=== PATIENT | female | born 1940 | race Caucasian/White ===

== ENCOUNTER 2018-09-08 15:31 | Observation (INO) ==
[2018-09-08] MEDS ORDERED: NS 1000 ML 1,000 ML IV SCH (18:44)
[2018-09-08] MEDS ORDERED: DUONEB 0.5 MG/3 MG ONE (19:02)
[2018-09-08] MEDS: DUONEB 0.5 MG/3 MG NEB SCH ×2 (19:10→21:24)
[2018-09-08 19:30] LABS: BASOPHILS # (AUTO) 0.1 X10^3/uL (0.0-0.1); BASOPHILS % (AUTO) 0.5 % (0.2-1.0); EOSINOPHILS # (AUTO) 0.1 x10^3/uL (0.0-0.2); EOSINOPHILS % (AUTO) 0.8 % (0.9-2.9); HEMATOCRIT 33.2 % (36.0-47.0); HEMOGLOBIN 10.8 g/dL (12.0-16.0); LYMPHOCYTES # (AUTO) 3.1 X10^3/uL (1.3-2.9); LYMPHOCYTES % (AUTO) 24.8 % (21.0-51.0); MEAN CORPUSCULAR HEMOGLOBIN 29.1 pg (27.0-34.0); MEAN CORPUSCULAR HGB CONC 32.6 g/dL (33.0-35.0); MEAN CORPUSCULAR VOLUME 89.3 fL (80.0-100.0); MEAN PLATELET VOLUME 8.4 fL (7.4-11.0); MONOCYTES # (AUTO) 0.6 x10^3/uL (0.3-0.8); MONOCYTES % (AUTO) 5.1 % (0.0-13.0); NEUTROPHILS # (AUTO) 8.6 x10^3/uL (2.2-4.8); NEUTROPHILS % (AUTO) 68.8 % (42.0-75.0); PLATELET COUNT 273 X10^3/uL (150.0-450.0); RED BLOOD COUNT 3.71 X10^6/uL (3.5-5.4); RED CELL DISTRIBUTION WIDTH 14.9 % (11.6-16.5); WHITE BLOOD COUNT 12.5 X10^3/uL (3.6-10.0)
[2018-09-08] MEDS: ROCEPHIN VIAL 1 GRAM IVP SCH (19:37)
[2018-09-08] MEDS: NS 1000 ML 1,000 ML IV SCH (19:40)
[2018-09-08 19:51] LABS: CALCIUM 9.3 mg/dL (8.5-10.1); CARBON DIOXIDE 25.8 mmol/L (21-32); COR CA(FOR HYPOALB) 10.1 mg/dL (8.5-10.1); CREATININE 2.6 mg/dL (0.55-1.02); FREE T4 (FREE THYROXINE) 0.88 ng/dL (0.76-1.46); MAGNESIUM 2.1 mg/dL (1.7-2.9); TOTAL PROTEIN 6.8 g/dL (6.4-8.2); TSH (3RD GENERATION) 1.359 uIU/mL (0.358-3.74)
[2018-09-08 19:57] VITALS: BMI 17.5
[2018-09-08 21:00] LABS: APPEARANCE,URINE CLEAR (CLEAR); BILIRUBIN,URINE NEGATIVE (NEGATIVE); BLOOD/HEMOGLOBIN,URINE NEGATIVE (NEGATIVE); COLOR,URINE YELLOW (YELLOW); GLUCOSE, URINE NEGATIVE (NEGATIVE); KETONES,URINE NEGATIVE (NEGATIVE); LEUKOCYTE ESTERASE ,URINE 1+ (NEGATIVE); NITRITES,URINE NEGATIVE (NEGATIVE); PROTEIN,URINE NEGATIVE (NEGATIVE); UROBILINOGEN,URINE NORMAL (NORMAL)
[2018-09-08 21:06] LABS: RBC,URINE 0-2 /HPF (NONE SEEN)
[2018-09-08 21:07] LABS: BACTERIA,URINE TRACE /HPF (NEGATIVE); SQUAMOUS EPITHELIAL CELL,UR RARE /HPF (NEGATIVE)
[2018-09-09] MEDS: DUONEB 0.5 MG/3 MG NEB SCH ×4 (01:20→21:19)
[2018-09-09 05:42] LABS: BASOPHILS % (AUTO) 0.3 % (0.2-1.0); EOSINOPHILS # (AUTO) 0.1 x10^3/uL (0.0-0.2); EOSINOPHILS % (AUTO) 0.6 % (0.9-2.9); HEMATOCRIT 29.8 % (36.0-47.0); HEMOGLOBIN 9.9 g/dL (12.0-16.0); LYMPHOCYTES # (AUTO) 3.3 X10^3/uL (1.3-2.9); LYMPHOCYTES % (AUTO) 27.9 % (21.0-51.0); MEAN CORPUSCULAR HEMOGLOBIN 29.3 pg (27.0-34.0); MEAN CORPUSCULAR HGB CONC 33.3 g/dL (33.0-35.0); MEAN CORPUSCULAR VOLUME 87.8 fL (80.0-100.0); MEAN PLATELET VOLUME 8.3 fL (7.4-11.0); MONOCYTES # (AUTO) 0.8 x10^3/uL (0.3-0.8); MONOCYTES % (AUTO) 6.6 % (0.0-13.0); NEUTROPHILS # (AUTO) 7.6 x10^3/uL (2.2-4.8); NEUTROPHILS % (AUTO) 64.6 % (42.0-75.0); PLATELET COUNT 234 X10^3/uL (150.0-450.0); RED BLOOD COUNT 3.39 X10^6/uL (3.5-5.4); RED CELL DISTRIBUTION WIDTH 15.1 % (11.6-16.5); WHITE BLOOD COUNT 11.7 X10^3/uL (3.6-10.0)
[2018-09-09 05:54] LABS: ALBUMIN 2.6 g/dL (3.4-5.0); CALCIUM 9.2 mg/dL (8.5-10.1); CARBON DIOXIDE 26.5 mmol/L (21-32); COR CA(FOR HYPOALB) 10.3 mg/dL (8.5-10.1); CREATININE 2.34 mg/dL (0.55-1.02); TOTAL PROTEIN 5.9 g/dL (6.4-8.2)
[2018-09-09] MEDS: ROCEPHIN VIAL 1 GRAM IVP SCH (09:35)
--- NOTE | 2018-09-09 13:50 | DR.H&P ---
H&P - History & Physical for Day of: H&P Date: 09/08/18 - Chief Complaint Chief Complaint: AMS, CONFUSION - History of Present Illness History of Present Illness: 78 WF DIRECT ADMIT FOR TREATMENT OF ACUTE INCREASED CONFUSION WITH POSSIBLE UTI. PT HAS HX OF CA WITH GENERALIZED WEAKNESS, HX OF REOCCURRING UTI'S, COPD, CAD WITH STENT PLACEMENT. PT ADMITTED FOR TREATMENT OF ACUTE RENAL INSUFFICIENCY, UTI, AMS. - Past Medical History Past Medical History: Arthritis, COPD, Coronary Artery Disease, Dementia, Hypertension, Kidney Stones, Renal Disease - Past Surgical History Surgical History: Angioplasty/Stents - Family History Family Medical History: Diabetes Mellitus, Cancer - Social History Does patient currently use any type of tobacco product: Yes Have you used tobacco products in the last 12 months: Yes Type of Tobacco Use: Cigarettes Alcohol Use: None Drug Use: None - Medications Home Medications: No Known Drug Allergies Allergy (Verified 09/08/18 18:42) CONTINUE taking the following medications albuterol sulfate [Ventolin HFA] 1 puff INHALATION Q4H PRN 09/09/18 [History] aspirin 81 mg PO QDAY 09/09/18 [History] buspirone 1 tab PO TID 09/09/18 [History] carvedilol 1 tab PO BID 09/09/18 [History] clopidogrel 1 tab PO DAILY 09/09/18 [History] docusate sodium [Colace] 100 mg PO BID 09/09/18 [History] escitalopram oxalate 1 tab PO DAILY 09/09/18 [History] furosemide 1 tab PO DAILY 09/09/18 [History] hydrocodone-acetaminophen 1 tab PO TID PRN 09/09/18 [History] ipratropium-albuterol 1 vial INHALATION QID 09/09/18 [History] megestrol 20 ml PO DAILY 09/09/18 [History] nitroglycerin 1 tab SUBLINGUAL .Q5MIN 09/09/18 [History] omeprazole 1 cap PO BID 09/09/18 [History] potassium chloride 20 meq PO DAILY 09/09/18 [History] simvastatin 1 tab PO HS 09/09/18 [History] - Review of Systems Constitutional: Fever, Weakness Eyes: No Symptoms Reported ENT: No Symptoms Reported Respiratory: No Symptoms Reported Cardiovascular: No Symptoms Reported Gastrointestinal: No Symptoms Reported Genitourinary: Dysuria, Frequency, Incontinence Musculoskeletal: No Symptoms Reported Skin: No Symptoms Reported Neurological: Weakness, Confusion - Physical Exam Vital Signs: Temperature 98.2 F Pulse Rate [Left Brachial] 90 Pulse Rate 84 Respiratory Rate 18 Blood Pressure [Left Arm] 104/67 O2 Sat by Pulse Oximetry 100 Oriented: Person Eyes: Normal Ear: Normal Nose: Normal Throat: Normal Respiratory: RLL Diminished, LLL Diminished Cardiovascular: Normal. negative: Murmur, Edema : Normal Auscultation: Bowel Sounds: Normal Palpation: Normal Tenderness: Normal Skin: Decreased Turgur Musculoskeletal: Right, Left, Motor Deficit (WEAKNESS MUSCLE ATROPHY) Mood Description: Flat, Withdrawn Speech Pattern: Appropriate, Delayed (LIMITED VERBAL RESPONSES, POOR EYE CONTACT) - Assessment/Plan (1) Altered mental status Status: Acute Plan: ADMIT BLOOD AND URINE CULTURE ON ADMISSION. GENTLE HYDRATION, I & OS, BP CONTROL. IV ATBX, CT ABD/PELVIS HX OF RENAL STONES. VERIFY HOME MEDS. FALL PRECAUTIONS, PAIN CONTROL (2) UTI (urinary tract infection) Status: Acute (3) Dehydration Status: Acute (4) CAD (coronary artery disease) Status: Acute - Allergies Allergies/Adverse Reactions: Allergies Allergy/AdvReac Type Severity Reaction Status Date / Time No Known Drug Allergies Allergy Verified 09/08/18 18:42
[2018-09-09] MEDS: NS 1000 ML 1,000 ML IV SCH ×2 (16:03→21:25)
[2018-09-10] MEDS: DUONEB 0.5 MG/3 MG NEB SCH ×3 (01:05→21:33)
[2018-09-10 05:32] LABS: BASOPHILS # (AUTO) 0.1 X10^3/uL (0.0-0.1); BASOPHILS % (AUTO) 0.4 % (0.2-1.0); EOSINOPHILS # (AUTO) 0.1 x10^3/uL (0.0-0.2); EOSINOPHILS % (AUTO) 0.8 % (0.9-2.9); HEMATOCRIT 29.2 % (36.0-47.0); HEMOGLOBIN 9.9 g/dL (12.0-16.0); LYMPHOCYTES # (AUTO) 3.3 X10^3/uL (1.3-2.9); MEAN CORPUSCULAR HEMOGLOBIN 29.7 pg (27.0-34.0); MEAN CORPUSCULAR HGB CONC 33.9 g/dL (33.0-35.0); MEAN CORPUSCULAR VOLUME 87.4 fL (80.0-100.0); MEAN PLATELET VOLUME 8.6 fL (7.4-11.0); MONOCYTES # (AUTO) 0.9 x10^3/uL (0.3-0.8); NEUTROPHILS # (AUTO) 8.2 x10^3/uL (2.2-4.8); NEUTROPHILS % (AUTO) 65.8 % (42.0-75.0); PLATELET COUNT 227 X10^3/uL (150.0-450.0); RED BLOOD COUNT 3.35 X10^6/uL (3.5-5.4); RED CELL DISTRIBUTION WIDTH 14.8 % (11.6-16.5); WHITE BLOOD COUNT 12.5 X10^3/uL (3.6-10.0)
[2018-09-10 06:07] LABS: ALBUMIN 2.5 g/dL (3.4-5.0); CARBON DIOXIDE 25.2 mmol/L (21-32); COR CA(FOR HYPOALB) 10.2 mg/dL (8.5-10.1); CREATININE 1.97 mg/dL (0.55-1.02); TOTAL PROTEIN 5.7 g/dL (6.4-8.2)
[2018-09-10] MEDS: ROCEPHIN VIAL 1 GRAM IVP SCH (09:57)
[2018-09-10] MEDS: NS 1000 ML 1,000 ML IV SCH (11:32)
[2018-09-10] MEDS: NORCO 7.5/325 MG TAB PO PRN ×2 (14:39→21:19)
--- NOTE | 2018-09-10 15:24 | PCM.PROG ---
Progress Note - Progress Note for Day of Date of Exam: 09/09/18 - Subjective Subjective: 78 WF ADMITTED ON 09/08 WITH AMS DUE TO POSSIBLE ACUTE INFECTION, HX OF UTIS WITH RENAL STONES. PT CURRENTLY ON IV ROCEPHIN WITH WBC11.7 BUN 54/CREAST 2.34 SLIGHTLY IMPROVED. CULTURES PENDING. PT CONTINUES WITH LIMITED VERBAL REPONSES TO STAFF. PT FAMILY AT BEDSIDE REPORTS SHE HAS BEEN AWAKE AND TALKING MORE, SEEMS TO BE IMPROVING. PT DENIES PAIN THIS AM, ATE SMALL AMOUNT OF BREAKFAST. NO ACUTE DISTRESS - Past Medical Family Social History Past Med/Fam/Surg Hx: No changes since H&P Allergies: Allergies No Known Drug Allergies Allergy (Verified 09/08/18 18:42) - Review of Systems ROS: No change since H&P - Vital Signs and I&O's Vital Signs: Temperature 98.3 F Pulse Rate [Left Brachial] 107 Pulse Rate 102 Respiratory Rate 18 Blood Pressure [Left Arm] 111/59 O2 Sat by Pulse Oximetry 96 Intake and Output: Intake & Output 09/08/18 09/09/18 09/10/18 09/11/18 11:59 11:59 11:59 11:59 Intake Total 803 / 803 2335 / 2335 1320 / 1320 Balance 803 / 803 2335 / 2335 1320 / 1320 - Physical Exam Oriented: Person Eyes: Normal Ear: Normal Nose: Normal Throat: Normal Respiratory: Diminished Cardiovascular: Normal. negative: Murmur, Edema : Normal Auscultation: Bowel Sounds: Normal Tenderness: Normal Skin: Decreased Turgur Musculoskeletal: Right, Left, Motor Deficit (WEAKNESS MUSCLE ATROPHY) Mood Description: Flat, Withdrawn Speech Pattern: Appropriate, Delayed (LIMITED VERBAL RESPONSES, POOR EYE CONTACT) - Laboratory and Diagnostics Result Diagrams: 09/10/18 04:10 09/10/18 04:10 Labs: 09/08/18 20:35 Blood Blood Culture - Preliminary 09/08/18 19:08 Blood Blood Culture - Preliminary 09/08/18 20:45 Urine,Clean Catch Urine Culture - Final Laboratory WBC 12.5 X10^3/uL (3.6-10.0) H 09/10/18 04:10 RBC 3.35 X10^6/uL (3.5-5.4) L 09/10/18 04:10 Hgb 9.9 g/dL (12.0-16.0) L 09/10/18 04:10 Hct 29.2 % (36.0-47.0) L 09/10/18 04:10 MCV 87.4 fL (80.0-100.0) 09/10/18 04:10 MCH 29.7 pg (27.0-34.0) 09/10/18 04:10 MCHC 33.9 g/dL (33.0-35.0) 09/10/18 04:10 RDW 14.8 % (11.6-16.5) 09/10/18 04:10 Plt Count 227 X10^3/uL (150.0-450.0) 09/10/18 04:10 MPV 8.6 fL (7.4-11.0) 09/10/18 04:10 Neut % (Auto) 65.8 % (42.0-75.0) 09/10/18 04:10 Lymph % (Auto) 26.0 % (21.0-51.0) 09/10/18 04:10 [place] % (Auto) 7.0 % (0.0-13.0) 09/10/18 04:10 Eos % (Auto) 0.8 % (0.9-2.9) L 09/10/18 04:10 Baso % (Auto) 0.4 % (0.2-1.0) 09/10/18 04:10 Neut # (Auto) 8.2 x10^3/uL (2.2-4.8) H 09/10/18 04:10 Lymph # (Auto) 3.3 X10^3/uL (1.3-2.9) H 09/10/18 04:10 [place] # (Auto) 0.9 x10^3/uL (0.3-0.8) H 09/10/18 04:10 Eos # (Auto) 0.1 x10^3/uL (0.0-0.2) 09/10/18 04:10 Baso # (Auto) 0.1 X10^3/uL (0.0-0.1) 09/10/18 04:10 Absolute Nucleated RBC 0.0 /100WBC 09/10/18 04:10 Sodium 140 mmol/L (136-145) 09/10/18 04:10 Corrected Sodium 142 mmol/L (136-145) 09/10/18 04:10 Potassium 4.1 mmol/L (3.5-5.1) 09/10/18 04:10 Chloride 105 mmol/L (98-107) 09/10/18 04:10 Carbon Dioxide 25.2 mmol/L (21-32) 09/10/18 04:10 BUN 47 mg/dL (7-18) H 09/10/18 04:10 Creatinine 1.97 mg/dL (0.55-1.02) H 09/10/18 04:10 Est GFR (MDRD) Af Amer 32 (>60) L 09/10/18 04:10 Est GFR (MDRD) Non-Af 26 (>60) L 09/10/18 04:10 Glucose 167 mg/dL (65-99) H 09/10/18 04:10 Calcium 9.0 mg/dL (8.5-10.1) 09/10/18 04:10 Corrected Calcium 10.2 mg/dL (8.5-10.1) H 09/10/18 04:10 Magnesium 2.1 mg/dL (1.7-2.9) 09/08/18 19:08 Total Bilirubin 0.20 mg/dL (0.2-1.0) 09/10/18 04:10 AST 17 Units/L (15-37) 09/10/18 04:10 ALT 20 Units/L (12-78) 09/10/18 04:10 Alkaline Phosphatase 84 Units/L (46-116) 09/10/18 04:10 Total Protein 5.7 g/dL (6.4-8.2) L 09/10/18 04:10 Albumin 2.5 g/dL (3.4-5.0) L 09/10/18 04:10 Globulin 3.2 g/dL (2.5-4.5) 09/10/18 04:10 Albumin/Globulin Ratio 0.8 Ratio (1.1-2.1) L 09/10/18 04:10 Free T4 0.88 ng/dL (0.76-1.46) 09/08/18 19:08 TSH 3rd Generation 1.359 uIU/mL (0.358-3.74) 09/08/18 19:08 Specimen Type Catherized urine 09/08/18 20:45 Urine Color Yellow (YELLOW) 09/08/18 20:45 Urine Appearance Clear (CLEAR) 09/08/18 20:45 Urine pH 5.0 (5.0 - 8.0) 09/08/18 20:45 Ur Specific [place] 1.010 (1.000-1.030) 09/08/18 20:45 Urine Protein Negative (NEGATIVE) 09/08/18 20:45 Urine Glucose (UA) Negative (NEGATIVE) 09/08/18 20:45 Urine Ketones Negative (NEGATIVE) 09/08/18 20:45 Urine Occult Blood Negative (NEGATIVE) 09/08/18 20:45 Urine Nitrite Negative (NEGATIVE) 09/08/18 20:45 Urine Bilirubin Negative (NEGATIVE) 09/08/18 20:45 Urine Urobilinogen Normal (NORMAL) 09/08/18 20:45 Ur Leukocyte Esterase 1+ (NEGATIVE) 09/08/18 20:45 Urine RBC 0-2 /HPF (NONE SEEN) 09/08/18 20:45 Urine WBC 3-5 /HPF (NONE SEEN) 09/08/18 20:45 Ur Squamous Epith Cells Rare /HPF (NEGATIVE) 09/08/18 20:45 Urine Bacteria Trace /HPF (NEGATIVE) 09/08/18 20:45 Ur Culture Indicated? Yes/culture set up 09/08/18 20:45 - Plan (1) Altered mental status Status: Acute Plan: BLOOD AND URINE CULTURE ON ADMISSION. MORE AWAKE AND ALERT TODAY. CONTINUE GENTLE HYDRATION, I & OS, BP CONTROL. IV ATBX, CT ABD/PELVIS HX OF RENAL STONES. VERIFY HOME MEDS. FALL PRECAUTIONS, PAIN CONTROL (2) UTI (urinary tract infection) Status: Acute Plan: IV ROCEPHIN (3) Dehydration Status: Acute (4) CAD (coronary artery disease) Status: Acute
--- NOTE | 2018-09-10 15:28 | PCM.PROG ---
Progress Note - Progress Note for Day of Date of Exam: 09/10/18 - Subjective Subjective: 78 WF ADMITTED ON 09/08 WITH AMS DUE TO POSSIBLE ACUTE INFECTION, HX OF UTIS WITH RENAL STONES. PT CURRENTLY ON IV ROCEPHIN WITH WBC 12.5 BUN 47/CREAST 7.97 SLIGHTLY IMPROVED. CULTURES PENDING. PT CONTINUES WITH LIMITED VERBAL REPONSES TO STAFF. PT FAMILY AT BEDSIDE REPORTS SHE HAS BEEN AWAKE AND TALKING MORE, SEEMS TO BE IMPROVING. PT CO PAIN THIS AM ASKING FOR PAIN MEDICATION AND ASKING STAFF "WHEN AM I GOING HOME" - Past Medical Family Social History Past Med/Fam/Surg Hx: No changes since H&P Allergies: Allergies No Known Drug Allergies Allergy (Verified 09/08/18 18:42) - Review of Systems ROS: No change since H&P - Vital Signs and I&O's Vital Signs: Temperature 98.3 F Pulse Rate [Left Brachial] 107 Pulse Rate 102 Respiratory Rate 18 Blood Pressure [Left Arm] 111/59 O2 Sat by Pulse Oximetry 96 Intake and Output: Intake & Output 09/08/18 09/09/18 09/10/18 09/11/18 11:59 11:59 11:59 11:59 Intake Total 803 / 803 2335 / 2335 1320 / 1320 Balance 803 / 803 2335 / 2335 1320 / 1320 - Physical Exam Oriented: Person Eyes: Normal Ear: Normal Nose: Normal Throat: Normal Respiratory: Diminished Cardiovascular: Normal. negative: Murmur, Edema : Normal Auscultation: Bowel Sounds: Normal Tenderness: Normal Skin: Decreased Turgur Musculoskeletal: Right, Left, Motor Deficit (WEAKNESS MUSCLE ATROPHY) Mood Description: Flat, Withdrawn Speech Pattern: Appropriate, Delayed (LIMITED VERBAL RESPONSES, POOR EYE CONTACT) - Laboratory and Diagnostics Result Diagrams: 09/10/18 04:10 09/10/18 04:10 Labs: 09/08/18 20:35 Blood Blood Culture - Preliminary 09/08/18 19:08 Blood Blood Culture - Preliminary 09/08/18 20:45 Urine,Clean Catch Urine Culture - Final Laboratory WBC 12.5 X10^3/uL (3.6-10.0) H 09/10/18 04:10 RBC 3.35 X10^6/uL (3.5-5.4) L 09/10/18 04:10 Hgb 9.9 g/dL (12.0-16.0) L 09/10/18 04:10 Hct 29.2 % (36.0-47.0) L 09/10/18 04:10 MCV 87.4 fL (80.0-100.0) 09/10/18 04:10 MCH 29.7 pg (27.0-34.0) 09/10/18 04:10 MCHC 33.9 g/dL (33.0-35.0) 09/10/18 04:10 RDW 14.8 % (11.6-16.5) 09/10/18 04:10 Plt Count 227 X10^3/uL (150.0-450.0) 09/10/18 04:10 MPV 8.6 fL (7.4-11.0) 09/10/18 04:10 Neut % (Auto) 65.8 % (42.0-75.0) 09/10/18 04:10 Lymph % (Auto) 26.0 % (21.0-51.0) 09/10/18 04:10 [place] % (Auto) 7.0 % (0.0-13.0) 09/10/18 04:10 Eos % (Auto) 0.8 % (0.9-2.9) L 09/10/18 04:10 Baso % (Auto) 0.4 % (0.2-1.0) 09/10/18 04:10 Neut # (Auto) 8.2 x10^3/uL (2.2-4.8) H 09/10/18 04:10 Lymph # (Auto) 3.3 X10^3/uL (1.3-2.9) H 09/10/18 04:10 [place] # (Auto) 0.9 x10^3/uL (0.3-0.8) H 09/10/18 04:10 Eos # (Auto) 0.1 x10^3/uL (0.0-0.2) 09/10/18 04:10 Baso # (Auto) 0.1 X10^3/uL (0.0-0.1) 09/10/18 04:10 Absolute Nucleated RBC 0.0 /100WBC 09/10/18 04:10 Sodium 140 mmol/L (136-145) 09/10/18 04:10 Corrected Sodium 142 mmol/L (136-145) 09/10/18 04:10 Potassium 4.1 mmol/L (3.5-5.1) 09/10/18 04:10 Chloride 105 mmol/L (98-107) 09/10/18 04:10 Carbon Dioxide 25.2 mmol/L (21-32) 09/10/18 04:10 BUN 47 mg/dL (7-18) H 09/10/18 04:10 Creatinine 1.97 mg/dL (0.55-1.02) H 09/10/18 04:10 Est GFR (MDRD) Af Amer 32 (>60) L 09/10/18 04:10 Est GFR (MDRD) Non-Af 26 (>60) L 09/10/18 04:10 Glucose 167 mg/dL (65-99) H 09/10/18 04:10 Calcium 9.0 mg/dL (8.5-10.1) 09/10/18 04:10 Corrected Calcium 10.2 mg/dL (8.5-10.1) H 09/10/18 04:10 Magnesium 2.1 mg/dL (1.7-2.9) 09/08/18 19:08 Total Bilirubin 0.20 mg/dL (0.2-1.0) 09/10/18 04:10 AST 17 Units/L (15-37) 09/10/18 04:10 ALT 20 Units/L (12-78) 09/10/18 04:10 Alkaline Phosphatase 84 Units/L (46-116) 09/10/18 04:10 Total Protein 5.7 g/dL (6.4-8.2) L 09/10/18 04:10 Albumin 2.5 g/dL (3.4-5.0) L 09/10/18 04:10 Globulin 3.2 g/dL (2.5-4.5) 09/10/18 04:10 Albumin/Globulin Ratio 0.8 Ratio (1.1-2.1) L 09/10/18 04:10 Free T4 0.88 ng/dL (0.76-1.46) 09/08/18 19:08 TSH 3rd Generation 1.359 uIU/mL (0.358-3.74) 09/08/18 19:08 Specimen Type Catherized urine 09/08/18 20:45 Urine Color Yellow (YELLOW) 09/08/18 20:45 Urine Appearance Clear (CLEAR) 09/08/18 20:45 Urine pH 5.0 (5.0 - 8.0) 09/08/18 20:45 Ur Specific [place] 1.010 (1.000-1.030) 09/08/18 20:45 Urine Protein Negative (NEGATIVE) 09/08/18 20:45 Urine Glucose (UA) Negative (NEGATIVE) 09/08/18 20:45 Urine Ketones Negative (NEGATIVE) 09/08/18 20:45 Urine Occult Blood Negative (NEGATIVE) 09/08/18 20:45 Urine Nitrite Negative (NEGATIVE) 09/08/18 20:45 Urine Bilirubin Negative (NEGATIVE) 09/08/18 20:45 Urine Urobilinogen Normal (NORMAL) 09/08/18 20:45 Ur Leukocyte Esterase 1+ (NEGATIVE) 09/08/18 20:45 Urine RBC 0-2 /HPF (NONE SEEN) 09/08/18 20:45 Urine WBC 3-5 /HPF (NONE SEEN) 09/08/18 20:45 Ur Squamous Epith Cells Rare /HPF (NEGATIVE) 09/08/18 20:45 Urine Bacteria Trace /HPF (NEGATIVE) 09/08/18 20:45 Ur Culture Indicated? Yes/culture set up 09/08/18 20:45 - Plan (1) Altered mental status Status: Acute Plan: BLOOD AND URINE CULTURE ON ADMISSION. MORE AWAKE AND ALERT TODAY. CONTINUE GENTLE HYDRATION, I & OS, BP CONTROL. IV ATBX, CT ABD/PELVIS HX OF RENAL STONES. RESUMED HOME MEDS. FALL PRECAUTIONS, PAIN CONTROL (2) UTI (urinary tract infection) Status: Acute Plan: IV ROCEPHIN (3) Dehydration Status: Acute (4) CAD (coronary artery disease) Status: Acute (5) Renal insufficiency Status: Acute Plan: CONTINUE GENTLE HYDRATION, I& OS (6) GERD (gastroesophageal reflux disease) Status: Acute
[2018-09-10] MEDS: ASPIRIN EC 81 MG PO SCH (16:56)
[2018-09-10] MEDS ORDERED: DUONEB 0.5 MG/3 MG IN SCH (17:00)
[2018-09-10] MEDS ORDERED: ZOCOR TAB 10 MG PO SCH (21:00)
[2018-09-10] MEDS: COLACE CAP 100 MG PO SCH (21:19)
[2018-09-10] MEDS: COREG TAB 3.125 MG PO SCH (21:19)
[2018-09-10] MEDS: BUSPAR PO SCH (21:19)
[2018-09-10] MEDS: PriLOSEC PO SCH (21:19)
[2018-09-11] MEDS: DUONEB 0.5 MG/3 MG NEB SCH ×4 (02:14→12:40)
[2018-09-11] MEDS: BUSPAR PO SCH (05:15)
[2018-09-11] MEDS: NS 1000 ML 1,000 ML IV SCH (05:17)
[2018-09-11 06:08] LABS: BASOPHILS % (AUTO) 0.2 % (0.2-1.0); EOSINOPHILS # (AUTO) 0.1 x10^3/uL (0.0-0.2); EOSINOPHILS % (AUTO) 1.1 % (0.9-2.9); HEMATOCRIT 29.8 % (36.0-47.0); HEMOGLOBIN 10.1 g/dL (12.0-16.0); LYMPHOCYTES # (AUTO) 2.6 X10^3/uL (1.3-2.9); LYMPHOCYTES % (AUTO) 27.1 % (21.0-51.0); MEAN CORPUSCULAR HEMOGLOBIN 29.7 pg (27.0-34.0); MEAN CORPUSCULAR HGB CONC 33.8 g/dL (33.0-35.0); MEAN CORPUSCULAR VOLUME 87.8 fL (80.0-100.0); MEAN PLATELET VOLUME 8.6 fL (7.4-11.0); MONOCYTES # (AUTO) 0.6 x10^3/uL (0.3-0.8); MONOCYTES % (AUTO) 6.4 % (0.0-13.0); NEUTROPHILS # (AUTO) 6.3 x10^3/uL (2.2-4.8); NEUTROPHILS % (AUTO) 65.2 % (42.0-75.0); PLATELET COUNT 231 X10^3/uL (150.0-450.0); RED BLOOD COUNT 3.39 X10^6/uL (3.5-5.4); WHITE BLOOD COUNT 9.7 X10^3/uL (3.6-10.0)
[2018-09-11 06:24] LABS: ALBUMIN 2.5 g/dL (3.4-5.0); CALCIUM 9.1 mg/dL (8.5-10.1); CARBON DIOXIDE 23.4 mmol/L (21-32); COR CA(FOR HYPOALB) 10.3 mg/dL (8.5-10.1); CREATININE 1.81 mg/dL (0.55-1.02); TOTAL PROTEIN 5.8 g/dL (6.4-8.2)
[2018-09-11 07:21] LABS: BAND NEUTROPHILS % 4 % (0-10)
[2018-09-11 07:22] LABS: PLATELET MORPHOLOGY COMMENT NORMAL (NORMAL)
[2018-09-11 08:04] VITALS: BP 132/63
[2018-09-11] MEDS ORDERED: LASIX PO SCH (09:00)
[2018-09-11] MEDS ORDERED: PLAVIX PO SCH (09:00)
[2018-09-11] MEDS ORDERED: KLOR-CON PO SCH (09:00)
[2018-09-11] MEDS ORDERED: LEXAPRO PO SCH (09:00)
[2018-09-11] MEDS ORDERED: LEXAPRO ONE (09:09)
[2018-09-11] MEDS: ROCEPHIN VIAL 1 GRAM IVP SCH (09:57)
[2018-09-11] MEDS: COLACE CAP 100 MG PO SCH (09:58)
[2018-09-11] MEDS: ASPIRIN EC 81 MG PO SCH (09:58)
[2018-09-11] MEDS: COREG TAB 3.125 MG PO SCH (09:58)
[2018-09-11] MEDS: PriLOSEC PO SCH (09:59)
== END 2018-09-11 16:00 | disposition home or self-care (01) ==
LOC: OBS → MED/SURG 09-09 17:00
PROVIDERS: ADMIT Internal Medicine; ATTEND Internal Medicine
DX: R53.1 Weakness; R10.84 Generalized abdominal pain; R41.82 Altered mental status, unspecified; J44.9 Chronic obstructive pulmonary disease, unspecified; R94.4 Abnormal results of kidney function studies; D72.828 Other elevated white blood cell count; K56.41 Fecal impaction; Z79.01 Long term (current) use of anticoagulants; E78.2 Mixed hyperlipidemia; I12.9 Hypertensive chronic kidney disease with stage 1 through stage 4 chronic kidney disease, or unspecified chronic kidney disease; N85.8 Other specified noninflammatory disorders of uterus; Z87.440 Personal history of urinary (tract) infections; R26.89 Other abnormalities of gait and mobility; N20.0 Calculus of kidney; N39.0 Urinary tract infection, site not specified; E86.0 Dehydration; I25.10 Atherosclerotic heart disease of native coronary artery without angina pectoris; Z79.899 Other long term (current) drug therapy
CPT/HCPCS: 36415; 71010; 71045; 74176; 80053; 81001; 83735; 84439; 84443; 85025; 87040; 87086; 94640; 94669; 94760; 96367; 96374; 97110; 97163; 97167; 97535; 99217; A4222; G0378; J0696; J7030; J7620